=== PATIENT | female | born 1995 | race American Indian/Alaskan Native ===

== ENCOUNTER 2017-10-01 16:11 | Emergency (ER) | payer SELFPAY ==
[2017-10-01 16:46] VITALS: BP 109/71
[2017-10-01 18:18] LABS: Bilirubin,Urine NEG (Negative); Blood,Urine MOD (Negative); Color,Urine Colorless (Yellow); Protein,Urine <15 mg/dL mg/dL (Negative); RBC,Urine < 1.0 /HPF (0.0-6.0); Urobilinogen,Urine < 2.0 mg/dL (<2.0); WBC,Urine < 1.0 /HPF (0.0-6.0)
[2017-10-01 18:32] LABS: HCG Qualitative,Urine Negative (Negative)
--- NOTE | 2017-10-01 20:38 | Emergency Department Report ---
ED Female HPI - General Chief complaint: Urogenital-Female Stated complaint: LOWER ABD PAIN Time Seen by Provider: 10/01/17 20:01 Source: patient Mode of arrival: Ambulatory Limitations: No Limitations - History of Present Illness Initial comments: 22-year-old -Tai[place]ese female presented to the emergency room for pelvic back pain and vaginal discharge times one month. Patient reports that she has burning with urination chest pain 1 month. Patient does admit to smoking tobacco and marijuana daily. The patient admits to nausea subjective fever and urinary pressure no urgency urinary frequency. She is sexually active with males one partner unprotected in the last 6 months. Patient currently denies any chest pain at this moment. She reports that her pelvic pain is super pubic pain. Back pain is left lower. Patient reports her vaginal discharge feels like a yeast infection but has an odor. Patient's last menstrual period was . Patient currently does not have a primary care provider. She currently takes no medications on a daily basis no past medical history and has no known drug allergies. MD Complaint: vaginal discharge, dysuria, pelvic pain -: month(s) (1) Radiation: suprapubic Severity scale (0 -10): 10 Quality: sharp Consistency: constant Improves with: none Worsens with: movement Are you Now?: No Last Menstrual Period: 09/25/17 EDC: 07/02/18 Associated Symptoms: vaginal discharge, nausea/vomiting, dysuria. denies: fever /chills, loss of appetite, hematuria - Related Data Sexually active: Yes : 1 Para: 0 Previous Rx's Medication Instructions Recorded Last Taken Type metroNIDAZOLE [Flagyl] 500 mg PO Q8HR 7 Days #21 tab 10/01/17 Unknown Rx traMADol [Ultram 50 MG tab] 50 mg PO Q6HR PRN #12 tablet 10/01/17 Unknown Rx Allergies Allergy/AdvReac Type Severity Reaction Status Date / Time No Known Allergies Allergy Verified 01/30/13 21:36 ED Review of Systems ROS: Stated complaint: LOWER ABD PAIN Other details as noted in HPI ED Past Medical Hx - Past Medical History Previous Medical History?: No - Surgical History Past Surgical History?: No - Social History Smoking Status: Current Every Day Smoker Substance Use Type: Marijuana - Medications Home Medications: Home Medications Medication Instructions Recorded Confirmed Last Taken Type metroNIDAZOLE [Flagyl] 500 mg PO Q8HR 7 Days #21 tab 10/01/17 Unknown Rx traMADol [Ultram 50 MG tab] 50 mg PO Q6HR PRN #12 tablet 10/01/17 Unknown Rx ED Physical Exam - General Limitations: No Limitations General appearance: alert, in no apparent distress - Head Head exam: Present: atraumatic, normocephalic - Eye Eye exam: Present: EOMI - ENT ENT exam: Present: mucous membranes moist - Neck Neck exam: Present: full ROM - Respiratory Respiratory exam: Present: normal lung sounds bilaterally. Absent: respiratory distress - Cardiovascular Cardiovascular Exam: Present: regular rate, normal rhythm. Absent: systolic murmur, diastolic murmur, rubs, gallop - GI/Abdominal GI/Abdominal exam: Present: soft, tenderness (suprapubic). Absent: distended - External exam: Present: normal external exam Speculum exam: Present: cervical discharge Bi-manual exam: Present: adnexal tenderness, uterine tenderness - Extremities Exam Extremities exam: Present: normal inspection - Back Exam Back exam: Present: full ROM - Neurological Exam Neurological exam: Present: alert, oriented X3 - Psychiatric Psychiatric exam: Present: normal affect, normal mood - Skin Skin exam: Present: warm, dry, intact, normal color. Absent: rash ED Course Vital Signs 10/01/17 16:41 Temperature 98.6 F Pulse Rate 72 Respiratory 18 Rate Blood Pressure 109/71 O2 Sat by Pulse 100 Oximetry ED Medical Decision Making - Radiology Data Radiology results: report reviewed, image reviewed FINDINGS: UTERUS Size: 8.3 x 3.6 x 7.0 cm. Endometrial thickness: Mild degree echogenic contents are noted in the endometrial canal with minimal degree fluid. Endometrial thickness is 6 mm. Orientation: anteverted. Cervix: Normal. Fibroids/masses: None. RIGHT Ovary: 2.8 x 1.7 x 2.2 cm. Appearance: Normal. LEFT Ovary: 2.8 x 1.9 x 1.8 cm. Appearance: Normal. Pelvic fluid: None. Other: None. IMPRESSION: Mild degree echogenic contents in the endometrial canal most likely represent retained products of conception. Clinical correlation and follow-up studies are recommended.. Transcribed By: [facility] [place] Dictated By: LINSEY THOMAS Electronically Authenticated By: LINSEY THOMAS Signed Date/Time: 10/01/17 2340 DD/ 39 TD/TT: 10/01/172339 - Medical Decision Making Patient has been evaluated by this provider fast track. Gonorrhea and chlamydia and wet prep collected. Ultrasound of pelvic with transvaginal Estonian recently had a miscarriage/ . Toradol IV 15 mg given for pain management as well as Tylenol 1000 mg given for pain management. Ultrasound showed patient has retained product of conception. As well as wet prep shows polymorphonuclear cells and >20 clue cells. Spoke with Dr. Ino Lewis in regards of ultrasound results. He reports to have patient call tomorrow to have a D&C scheduled. As well as treat her for gonorrhea and bacterial vaginosis. Informed patient of my concerns and test results and imaging results. In plan for her to follow up with Dr. Ino Lewis Critical care attestation.: If time is entered above; I have spent that time in minutes in the direct care of this critically ill patient, excluding procedure time. ED Disposition Clinical Impression: Retained products of conception after miscarriage, Gonorrhea, BV (bacterial vaginosis) Disposition: TO HOME OR SELFCARE Is pt being admited?: No Does the pt Need Aspirin: No Condition: Stable Instructions: Bacterial Vaginosis (ED), Gonococcal Urethritis (ED), Safe Sex ( ED), Sexually Transmitted Diseases (ED) Additional Instructions: Please complete antibiotics as prescribed. Pain medication as needed. It's very importantly to follow up with Dr. Ino Lewis [facility] provider I given him a call tomorrow to schedule an appointment for D&C. Prescriptions: metroNIDAZOLE [Flagyl] 500 mg PO Q8HR 7 Days #21 tab traMADol [Ultram 50 MG tab] 50 mg PO Q6HR PRN #12 tablet PRN Reason: Pain Referrals: PRIMARY CAREMD [Primary Care Provider] - 3-5 Days INO LEWIS MD [Staff Physician] - 3-5 Days Forms: STI Treatment and Prevention
[2017-10-01] MEDS ORDERED: TORADOL IV ONE (20:52)
[2017-10-01] MEDS ORDERED: TYLENOL PO ONE (21:31)
[2017-10-01] MEDS ORDERED: TYLENOL ONE (21:32)
--- NOTE | 2017-10-01 23:40 | Ultrasound Report ---
FINAL REPORT PROCEDURE: US TRANSVAGINAL TECHNIQUE: Real-time transvaginal sonography in multiple planes of the pelvis was performed with image documentation. This examination was performed without Doppler. Vascular abnormalities, including ovarian torsion, will not be detectable without Doppler evaluation. CPT 52312 HISTORY: severe abdominal pain status post miscarriage COMPARISON: No prior studies are available for comparison. FINDINGS: UTERUS Size: 8.3 x 3.6 x 7.0 cm. Endometrial thickness: Mild degree echogenic contents are noted in the endometrial canal with minimal degree fluid. Endometrial thickness is 6 mm. Orientation: anteverted. Cervix: Normal. Fibroids/masses: None. RIGHT Ovary: 2.8 x 1.7 x 2.2 cm. Appearance: Normal. LEFT Ovary: 2.8 x 1.9 x 1.8 cm. Appearance: Normal. Pelvic fluid: None. Other: None. IMPRESSION: Mild degree echogenic contents in the endometrial canal most likely represent retained products of conception. Clinical correlation and follow-up studies are recommended..
--- NOTE | 2017-10-01 23:41 | Ultrasound Report ---
FINAL REPORT PROCEDURE: US PELVIC COMPLETE TECHNIQUE: Real-time transabdominal sonography in multiple planes of pelvis was performed with image documentation. This examination was performed without Doppler. Vascular abnormalities, including ovarian torsion, will not be detectable without Doppler evaluation. CPT 69867 HISTORY: severe abdominal pain status post miscarriage COMPARISON: No prior studies are available for comparison. FINDINGS: UTERUS Size: 8.3 x 3.6 x 7.0 cm. Endometrial thickness: Mild degree echogenic contents are noted in the endometrial canal with minimal degree fluid. Endometrial thickness is 6 mm. Orientation: anteverted. Cervix: Normal. Fibroids/masses: None. RIGHT Ovary: 2.8 x 1.7 x 2.2 cm. Appearance: Normal. LEFT Ovary: 2.8 x 1.9 x 1.8 cm. Appearance: Normal. Pelvic fluid: None. Other: None. IMPRESSION: Mild degree echogenic contents in the endometrial canal most likely represent retained products of conception. Clinical correlation and follow-up studies are recommended..
[2017-10-01] MEDS ORDERED: XYLOCAINE 1% MPF 5 mL INFILTRATI ONE (23:50)
[2017-10-01] MEDS ORDERED: ROCEPHIN IM ONE (23:50)
[2017-10-01] MEDS ORDERED: ZITHROMAX PO ONE (23:50)
== END 2017-10-02 00:55 | disposition home or self-care (01) ==
LOC: ED 16:11
DX: O03.4 Incomplete spontaneous abortion without complication (principal); O98.219 Gonorrhea complicating pregnancy, unspecified trimester; O23.599 Infection of other part of genital tract in pregnancy, unspecified trimester; O99.330 Smoking (tobacco) complicating pregnancy, unspecified trimester; F12.10 Cannabis abuse, uncomplicated
CPT/HCPCS: 76830; 76856; 81001; 81025; 87210; 87591; 93005; 93010; 96372; 96374; 99284; J0696; J1885

== ENCOUNTER 2017-10-14 22:00 | Emergency (ER) | payer SELFPAY ==
[2017-10-15 01:12] LABS: Basophils % (Auto) 0.4 % (0.0-1.8); Eosinophils % (Auto) 0.4 % (0.0-4.3); Hematocrit 36.2 % (30.3-42.9); Hemoglobin 11.9 gm/dl (10.1-14.3); Lymphocytes # (Auto) 2.7 K/mm3 (1.2-5.4); Lymphocytes % (Auto) 37.7 % (13.4-35.0); Mean Corpuscular HGB Conc 33 % (30-34); Mean Corpuscular Hemoglobin 29 pg (28-32); Mean Corpuscular Volume 88 fl (79-97); Monocytes # (Auto) 0.5 K/mm3 (0.0-0.8); Monocytes % (Auto) 6.7 % (0.0-7.3); Platelet Count 360 K/mm3 (140-440)
--- NOTE | 2017-10-15 01:22 | Emergency Department Report ---
ED Female HPI - General Chief complaint: Vaginal Bleeding Stated complaint: VAGINAL BLEEDING/DNC Time Seen by Provider: 10/15/17 01:13 Source: patient Mode of arrival: Ambulatory Limitations: No Limitations - History of Present Illness Initial comments: Patient is 22 years old female with recent miscarriage. Patient presented to the ER complaining of vaginal bleeding since she had the miscarriage one month ago. She stated that she saw Dr. Ino Lewis last Sunday and she was told that if the bleeding continued she would need a D&C. Patient denied any dizziness lightheadedness, chest pain or shortness of breath. MD Complaint: vaginal bleeding -: week(s) Severity scale (0 -10): 5 Quality: cramping - Related Data Previous Rx's Medication Instructions Recorded Last Taken Type metroNIDAZOLE [Flagyl] 500 mg PO Q8HR 7 Days #21 tab 10/01/17 Unknown Rx traMADol [Ultram 50 MG tab] 50 mg PO Q6HR PRN #12 tablet 10/01/17 Unknown Rx Allergies Allergy/AdvReac Type Severity Reaction Status Date / Time No Known Allergies Allergy Verified 01/30/13 21:36 ED Review of Systems ROS: Stated complaint: VAGINAL BLEEDING/DNC Other details as noted in HPI Comment: All other systems reviewed and negative Constitutional: denies: chills, fever Respiratory: denies: cough, orthopnea, shortness of breath, SOB with exertion, wheezing Gastrointestinal: abdominal pain. denies: nausea, vomiting, diarrhea, hematemesis, melena, hematochezia Neurological: denies: headache, weakness ED Past Medical Hx - Past Medical History Previous Medical History?: No - Surgical History Past Surgical History?: No - Social History Smoking Status: Never Smoker Substance Use Type: Alcohol, Marijuana - Medications Home Medications: Home Medications Medication Instructions Recorded Confirmed Last Taken Type metroNIDAZOLE [Flagyl] 500 mg PO Q8HR 7 Days #21 tab 10/01/17 Unknown Rx traMADol [Ultram 50 MG tab] 50 mg PO Q6HR PRN #12 tablet 10/01/17 Unknown Rx ED Physical Exam - General Limitations: No Limitations General appearance: alert, in no apparent distress - Head Head exam: Present: atraumatic, normocephalic, normal inspection - Eye Eye exam: Present: normal appearance - ENT ENT exam: Present: normal exam, normal orophraynx, mucous membranes moist - Neck Neck exam: Present: normal inspection, full ROM. Absent: tenderness, meningismus, lymphadenopathy, thyromegaly - Respiratory Respiratory exam: Present: normal lung sounds bilaterally - Cardiovascular Cardiovascular Exam: Present: regular rate, normal rhythm, normal heart sounds - GI/Abdominal GI/Abdominal exam: Present: soft, normal bowel sounds. Absent: distended, tenderness, guarding, rebound, rigid - Extremities Exam Extremities exam: Present: normal inspection, full ROM, normal capillary refill. Absent: calf tenderness - Back Exam Back exam: Present: normal inspection, full ROM - Neurological Exam Neurological exam: Present: alert, oriented X3, CN II-XII intact, normal gait - Skin Skin exam: Present: warm, intact, normal color ED Course Vital Signs 10/14/17 10/15/17 10/15/17 23:57 00:48 02:00 Temperature 98.3 F 98.1 F Pulse Rate 77 60 68 Respiratory 16 18 18 Rate Blood Pressure 115/58 Blood Pressure 109/60 107/68 [Right] O2 Sat by Pulse 100 99 99 Oximetry ED Medical Decision Making - Lab Data Result diagrams: 10/15/17 00:14 - Medical Decision Making I discussed the patient with Dr. Ino Lewis, Dr. Lewis stated that patient can be discharged home and to follow-up with him in his office today. Critical care attestation.: If time is entered above; I have spent that time in minutes in the direct care of this critically ill patient, excluding procedure time. ED Disposition Clinical Impression: Retained products of conception after miscarriage Disposition: DC-01 TO HOME OR SELFCARE Is pt being admited?: No Condition: Stable Instructions: Bleeding (ED) Referrals: INO LEWIS MD [Staff Physician] - 24 Hours
[2017-10-15 02:23] LABS: Amorphous Crystals,Urine 1+; Bilirubin,Urine NEG (Negative); Blood,Urine NEG (Negative); Color,Urine Yellow (Yellow); Urobilinogen,Urine < 2.0 mg/dL (<2.0)
[2017-10-15 02:25] LABS: RBC,Urine < 1.0 /HPF (0.0-6.0); WBC,Urine < 1.0 /HPF (0.0-6.0)
[2017-10-15 02:50] VITALS: BP 107/68
== END 2017-10-15 02:45 | disposition home or self-care (01) ==
LOC: ED 22:00
DX: O03.4 Incomplete spontaneous abortion without complication (principal); F12.10 Cannabis abuse, uncomplicated
CPT/HCPCS: 36415; 81001; 84702; 85025; 86850; 86900; 86901; 99283

== ENCOUNTER 2017-10-16 09:30 | Day surgery (SDC) | payer OTHER ==
[~2017-10-16 09:30] MED LIST: DEMEROL IV PRN; LACTATED RINGERS 1,000 ML IV SCH; TORADOL IV PRN; VERSED IV NR; ZOFRAN IV PRN
--- NOTE | 2017-10-16 12:10 | Anesthesia Consultation ---
Anesthesia Consult and Med Hx Date of service: 10/16/17 - Airway Anesthetic Teeth Evaluation: Good ROM Head & Neck: Adequate Mental/Hyoid Distance: Adequate Mallampati Class: Class II Intubation Access Assessment: Good - Pulmonary Exam CTA: Yes - Cardiac Exam Cardiac Exam: RRR - Pre-Operative Health Status ASA Pre-Surgery Classification: ASA2 Proposed Anesthetic Plan: General - Pulmonary Hx Smoking: Yes
--- NOTE | 2017-10-16 12:11 | Anesthesia Day of Surgery ---
Anesthesia Day of Surgery - Day of Surgery Patient Examined: Yes Patient H&P Reviewed: Yes Patient is NPO: Yes
[2017-10-16] MEDS ORDERED: DILAUDID IV SCH (12:16)
[2017-10-16] MEDS ORDERED: XYLOCAINE MPF 2% ONE (12:22)
[2017-10-16] MEDS ORDERED: SUBLIMAZE ONE (12:22)
[2017-10-16] MEDS ORDERED: DIPRIVAN 10 MG/ML IV ONE (12:22)
--- NOTE | 2017-10-16 12:47 | Short Stay Summary ---
Short Stay Documentation Date of service: 10/16/17 Narrative H&P: Pt is a 22yo BF LMP 09/25/17 presents for surgical evaluation and treatment of retained products of conception. - History Principal diagnosis: Retained products of conception H&P: obtained from office Past Medical History: No medical history Past Surgical History: No surgical history Social history: no significant social history, single, smoking - Allergies and Medications Current Medications: Allergies No Known Allergies Allergy (Verified 01/30/13 21:36) Home Medications Medication Instructions Recorded Confirmed Last Taken Type metroNIDAZOLE [Flagyl] 500 mg PO Q8HR 7 Days #21 tab 10/01/17 Unknown Rx traMADol [Ultram 50 MG tab] 50 mg PO Q6HR PRN #12 tablet 10/01/17 Unknown Rx Active Medications Hydromorphone HCl (Dilaudid) 0.5 mg IV Q10MIN PRN PRN Reason: Pain , Severe (7-10) Stop: 10/16/17 16:00 Hydromorphone HCl (Dilaudid) 0.5 mg IV ONCE SHARATH Stop: 10/16/17 23:59 Lactated Ringer's (Lactated Ringers) 1,000 mls @ 100 mls/hr IV DIRECT SHARATH Cefazolin Sodium (Ancef/Sterile Water 2 Gm/20 Ml) 2 gm in 20 mls @ 80 mls/hr IV PREOP NR; Protocol Ketorolac Tromethamine (Toradol) 30 mg IV ONCE PRN PRN Reason: Pain, Moderate (4-6) Stop: 10/16/17 16:00 Meperidine HCl (Demerol) 25 mg IV ONCE PRN PRN Reason: Shivering Midazolam HCl (Versed) 2 mg IV PREOP NR Stop: 10/16/17 23:59 Ondansetron HCl (Zofran) 4 mg IV ONCE PRN PRN Reason: Nausea And Vomiting Stop: 10/16/17 16:00 - Physical exam General appearance: no acute distress Integumentary: no rash HEENT: Atraumatic Lungs: Clear to auscultation Breasts: deferred Heart: Regular rate Gastrointestinal: normal Female Genitourinary: deferred Rectal Exam: deferred Extremities: no ischemia, No edema Neurological: Normal gait, Normal speech - Brief post op/procedure progress note Date of procedure: 09/11/18 Pre-op diagnosis: Retained products of conception Post-op diagnosis: same Procedure: Dilatation and curettage Anesthesia: MAC Findings: An 8-10 week size uterus with scant amounts of products of conception Surgeon: LISA OSORIO Estimated blood loss: minimal Pathology: list (products of conception) Specimen disposition: to lab Condition: stable - Hospital course Hospital course: Unremarkable. - Disposition Condition at discharge: Good Disposition: DC- TO HOME OR SELFCARE - Discharge Diagnoses (1) Retained products of conception after miscarriage Status: Resolved Short Stay Discharge Plan Activity: no restrictions Diet: regular Follow up with: PRIMARY CARE,MD [Primary Care Provider] - 7 Days LISA OSORIO MD [Staff Physician] - 14 Days Prescriptions: Doxycycline [Vibramycin CAP] 100 mg PO Q12HR #14 capsule Ibuprofen [Motrin] 800 mg PO Q8HR PRN #30 tablet PRN Reason: Pain, Moderate (4-6) Methylergonovine [Methergine] 0.2 mg PO Q8HR #6 tablet
[2017-10-16] MEDS ORDERED: ANCEF/STERILE WATER 2 GM/20 ML 2 GM/20 ML SYRINGE IV NR (13:00)
[2017-10-16] MEDS ORDERED: QUELICIN ONE (13:35)
[2017-10-16] MEDS ORDERED: NACL 0.9% IR ONE (13:40)
--- NOTE | 2017-10-16 13:42 | Operative Report ---
Operative Report Operative Report: PREOPERATIVE DIAGNOSIS: Retained products of conception POSTOPERATIVE DIAGNOSIS: Same OPERATIVE PROCEDURE: Dilatation and curettage. SURGEON: Ino Lewis MD ANESTHESIA: Gen. mask ANESTHESIOLOGIST: Dr. Lang ESTIMATED BLOOD LOSS: 30 mL's FINDINGS: An 8-10 week size uterus with scant amounts of products of conception COMPLICATIONS: None COUNTS: Correct x3. PROCEDURE: After the patient was correctly identified, and after general anesthesia was administered, the patient was prepped and draped in the usual sterile fashion and placed in dorsal lithotomy position. First, the bladder was emptied using a straight catheter. Next, a speculum was placed in the vaginal vault and the anterior lip of the cervix was grasped using a single- tooth tenaculum. The uterus was sounded to 9 cm. The cervical os was sequentially dilated, and a 9 mm vaccurette was used to suction blood and products of conception from the uterine cavity. After all the products of conception were removed, the procedure was considered complete. All instruments were removed from the vagina. The patient tolerated the procedure well and was transferred to the recovery room in stable condition.
[2017-10-16] MEDS: DILAUDID IV PRN ×2 (14:20→15:22)
[2017-10-16] MEDS ORDERED: MOTRIN PO PRN (15:04)
[2017-10-16 16:30] VITALS: BP 133/76
== END 2017-10-16 16:33 | disposition home or self-care (01) ==
LOC: OR 09:30
PROVIDERS: ATTEND Obstetrics & Gynecology
DX: O03.4 Incomplete spontaneous abortion without complication (principal); Z3A.01 Less than 8 weeks gestation of pregnancy; Z79.899 Other long term (current) drug therapy; Z87.891 Personal history of nicotine dependence
CPT/HCPCS: 59812; 88305; J0330; J0690; J1170; J1885; J2250; J2405; J2704; J3010; J7120

== ENCOUNTER 2018-11-20 15:16 | Emergency (ER) | payer MEDICAID ==
[2018-11-20 17:24] LABS: Bilirubin,Urine NEG (Negative); Blood,Urine NEG (Negative); Color,Urine Straw (Yellow); Mucus,Urine FEW /HPF; Protein,Urine <15 mg/dL mg/dL (Negative); Urobilinogen,Urine < 2.0 mg/dL (<2.0)
[2018-11-20 17:32] LABS: HCG Qualitative,Urine Negative (Negative)
[2018-11-20 17:33] LABS: Amphetamine Screen,Urine PRESUMPTIVE NEGATIVE; Benzodiazepines Screen,Urine PRESUMPTIVE NEGATIVE; Cannabinoid Screen,Urine PRESUMPTIVE NEGATIVE; Cocaine Screen,Urine PRESUMPTIVE NEGATIVE; Methadone Screen,Urine PRESUMPTIVE NEGATIVE; Opiate Screen,Urine PRESUMPTIVE NEGATIVE
--- NOTE | 2018-11-20 17:55 | Emergency Department Report ---
HPI - General Chief Complaint: Abdominal Pain Time Seen by Provider: 11/20/18 16:01 - HPI HPI: 23-year-old -Bangladeshi female presents to the emergency department with a complaint of some pelvic pain that has been going on intermittently for the past 2-3 months, since the patient had an in September of this year. She denies any vaginal bleeding or vaginal discharge but does say that she has an odor coming from the vagina. She denies any fever, nausea, vomiting. Her pelvic pain is about 4 out of 10 in intensity. She has not taken anything for her symptoms prior to presentation. She does not have a primary care physician or [facility]. ED Past Medical Hx - Past Medical History Previous Medical History?: No Additional medical history: D & C October 2017 - Surgical History Past Surgical History?: Yes Additional Surgical History: D & C October 2017 - Social History Smoking Status: Never Smoker Substance Use Type: Alcohol - Medications Home Medications: Home Medications Medication Instructions Recorded Confirmed Last Taken Type traMADol [Ultram 50 MG tab] 50 mg PO Q6HR PRN #12 tablet 10/01/17 10/16/17 10/14/17 Rx DOXYCYCLINE Hyclate [Vibramycin 100 mg PO Q12HR #14 capsule 10/16/17 Unknown Rx CAP] Ibuprofen [Motrin] 800 mg PO Q8HR PRN #30 tablet 10/16/17 Unknown Rx Methylergonovine [Methergine] 0.2 mg PO Q8HR #6 tablet 10/16/17 Unknown Rx Ibuprofen [Motrin] 600 mg PO Q8H PRN #30 tablet 01/13/18 Unknown Rx Naproxen [Naprosyn] 500 mg PO BID #20 tablet 11/20/18 Unknown Rx metroNIDAZOLE [Flagyl] 500 mg PO Q12HR 7 Days #14 tab 11/20/18 Unknown Rx ED Review of Systems ROS: Stated complaint: LOWER ABD PAIN Other details as noted in HPI Comment: All other systems reviewed and negative Constitutional: denies: chills, fever Gastrointestinal: denies: nausea, vomiting Genitourinary: other (pelvic pain). denies: dysuria, discharge Skin: denies: rash, lesions Physical Exam - Physical Exam Vital Signs: Vital Signs 11/20/18 15:22 Temperature 98.0 F Pulse Rate 66 Respiratory 18 Rate Blood Pressure 116/72 O2 Sat by Pulse 100 Oximetry Physical Exam: GENERAL: The patient is well-developed well-nourished. HENT: Normocephalic. Atraumatic. Patient has moist mucous membranes. EYES: Extraocular motions are intact. NECK: Supple. Trachea is midline. CHEST/LUNGS: Clear to auscultation. There is no respiratory distress noted. HEART/CARDIOVASCULAR: Regular. There is no tachycardia. There is no murmur. ABDOMEN: Abdomen is soft, nontender. Patient has normal bowel sounds. There is no abdominal distention. SKIN: Skin is warm and dry. NEURO: The patient is awake, alert, and oriented. The patient is cooperative. The patient has no focal neurologic deficits. Normal speech. MUSCULOSKELETAL: There is no tenderness or deformity. There is no evidence of acute injury. PELVIC: No labial, vaginal or cervical lesions seen. Cervical os is closed. Mild thin white discharge seen in the vagina. ED Course Vital Signs 11/20/18 15:22 Temperature 98.0 F Pulse Rate 66 Respiratory 18 Rate Blood Pressure 116/72 O2 Sat by Pulse 100 Oximetry - Reevaluation(s) Reevaluation #1: 11/20/18 18:02 Pelvic exam done with nurse Askew at bedside as a tub chucker and for assistance. ED Medical Decision Making - Radiology Data Radiology results: report reviewed Transabdominal and endovaginal pelvic ultrasound INDICATION: Intermittent pelvic pain x3 months FINDINGS: Uterus measures 7.7 x 4.2 x 5.4 cm. Endometrial stripe is normal at 5 IMPRESSION: Negative pelvic ultrasound. Mm. Right ovary measures 2.5 x 2 x 2.6 cm and appears normal with no masses or torsion. The left ovary measures 2.7 x 2.1 x 2.5 cm and appears normal as well. There is good arterial flow to both ovaries with no evidence of torsion. No free fluid is seen. No abnormality demonstrated. Signer Name: Renaldo Arango MD Signed: 11/20/2018 8:10 PM Workstation Name: [id number] - Medical Decision Making Patient presents with some pelvic pain and later complained of some odor from the vagina. Pelvic examination was done with a nurse at bedside as tub chucker and senior it assistant. Wet prep positive for BV. The rest of the labs are unremarkable. Transvaginal ultrasound completed. Negative for . Vital signs stable. Discharged to follow up with [facility]. - Differential Diagnosis ovarian torsion, ovarian cyst, , fibroid, UTI Critical Care Time: No Critical care attestation.: If time is entered above; I have spent that time in minutes in the direct care of this critically ill patient, excluding procedure time. ED Disposition Clinical Impression: Pelvic pain, Bacterial vaginosis Disposition: TO HOME OR SELFCARE Is pt being admited?: No Condition: Stable Instructions: Bacterial Vaginosis (ED) Prescriptions: metroNIDAZOLE [Flagyl] 500 mg PO Q12HR 7 Days #14 tab Naproxen [Naprosyn] 500 mg PO BID #20 tablet Referrals: [facility] [Provider Group] - 2-3 Days [facility] [Provider Group] - 2-3 Days [facility] [Provider Group] - 2-3 Days Forms: STI Treatment and Prevention, Work/School Release Form(ED)
[2018-11-20] MEDS ORDERED: ZITHROMAX PO ONE (19:40)
[2018-11-20] MEDS ORDERED: ROCEPHIN IM ONE (19:40)
[2018-11-20] MEDS ORDERED: XYLOCAINE 1% MPF 5 mL INFILTRATI ONE (19:40)
--- NOTE | 2018-11-20 20:15 | Ultrasound Report ---
Transabdominal and endovaginal pelvic ultrasound INDICATION: Intermittent pelvic pain x3 months FINDINGS: Uterus measures 7.7 x 4.2 x 5.4 cm. Endometrial stripe is normal at 5 IMPRESSION: Negative pelvic ultrasound. Mm. Right ovary measures 2.5 x 2 x 2.6 cm and appears normal with no masses or torsion. The left ovary measures 2.7 x 2.1 x 2.5 cm and appears normal as well. The re is good arterial flow to both ovaries with no evidence of torsion. No free fluid is seen. No abnor mality demonstrated. Signer Name: Renaldo Arango MD Signed: 11/20/2018 8:10 PM Workstation Name: [id number]
[2018-11-20 20:48] VITALS: BP 134/84
== END 2018-11-20 20:48 | disposition home or self-care (01) ==
LOC: ED 15:16
DX: N76.0 Acute vaginitis (principal); B96.89 Other specified bacterial agents as the cause of diseases classified elsewhere; Z79.899 Other long term (current) drug therapy
CPT/HCPCS: 76830; 80307; 81001; 81025; 87210; 87591; 93975; 96372; 99284; J0696

== ENCOUNTER 2018-12-19 12:24 | Emergency (ER) | payer MEDICAID ==
[2018-12-19 12:34] VITALS: BP 117/64
--- NOTE | 2018-12-19 12:48 | Emergency Department Report ---
Blank Doc - Documentation Documentation: 23-year-old female that presents with pelvic pain and vaginal discharge. This initial assessment/diagnostic orders/clinical plan/treatment(s) is/are subject to change based on patient's health status, clinical progression and re- assessment by fellow clinical providers in the ED. Further treatment and workup at subsequent clinical providers discretion. Patient/guardians urged not to elope from the ED as their condition may be serious if not clinically assessed and managed. Initial orders include: 1- Patient sent to [facility] for further evaluation and treatment 2- UA 3- pelvic exam to be done
[2018-12-19 14:12] LABS: Bilirubin,Urine NEG (Negative); Blood,Urine MOD (Negative); Color,Urine Yellow (Yellow); Protein,Urine <15 mg/dL mg/dL (Negative); Urobilinogen,Urine < 2.0 mg/dL (<2.0)
[2018-12-19 14:23] LABS: HCG Qualitative,Urine Negative (Negative)
--- NOTE | 2018-12-19 16:10 | Emergency Department Report ---
ED Female HPI - General Chief complaint: Abdominal Pain Stated complaint: ABD PAIN Time Seen by Provider: 12/19/18 12:47 Source: patient Mode of arrival: Ambulatory Limitations: No Limitations - History of Present Illness Initial comments: This is a 23-year-old female with no problems medical history presents to ED complaining of a vaginal odor for the past week. Patient states that she had the in September and after that had a bacterial infection where she was evaluated and treated with Flagyl. Patient states that symptoms did not resolve with the Flagyl treatment. He denies vaginal discharge, irregular bleeding, dysuria, fever, nausea vomiting - Related Data Previous Rx's Medication Instructions Recorded Last Taken Type traMADoL [Ultram 50 MG tab] 50 mg PO Q6HR PRN #12 tablet 10/01/17 10/14/17 Rx DOXYCYCLINE Hyclate [Vibramycin 100 mg PO Q12HR #14 capsule 10/16/17 Unknown Rx CAP] Ibuprofen [Motrin] 800 mg PO Q8HR PRN #30 tablet 10/16/17 Unknown Rx Methylergonovine [Methergine] 0.2 mg PO Q8HR #6 tablet 10/16/17 Unknown Rx Ibuprofen [Motrin] 600 mg PO Q8H PRN #30 tablet 01/13/18 Unknown Rx Naproxen [Naprosyn] 500 mg PO BID #20 tablet 11/20/18 Unknown Rx metroNIDAZOLE [Flagyl] 500 mg PO Q12HR 7 Days #14 tab 11/20/18 Unknown Rx Clindamycin [Clindamycin CAP] 300 mg PO Q8H #21 cap 12/19/18 Unknown Rx Fluconazole [Diflucan TAB] 150 mg PO ONCE #1 tablet 12/19/18 Unknown Rx Allergies Allergy/AdvReac Type Severity Reaction Status Date / Time No Known Allergies Allergy Verified 01/30/13 21:36 ED Review of Systems ROS: Stated complaint: ABD PAIN Other details as noted in HPI Comment: All other systems reviewed and negative ED Past Medical Hx - Past Medical History Additional medical history: D & C October 2017 - Surgical History Additional Surgical History: D & C October 2017 - Social History Smoking Status: Never Smoker Substance Use Type: None - Medications Home Medications: Home Medications Medication Instructions Recorded Confirmed Last Taken Type traMADoL [Ultram 50 MG tab] 50 mg PO Q6HR PRN #12 tablet 10/01/17 10/16/17 10/14/17 Rx DOXYCYCLINE Hyclate [Vibramycin 100 mg PO Q12HR #14 capsule 10/16/17 Unknown Rx CAP] Ibuprofen [Motrin] 800 mg PO Q8HR PRN #30 tablet 10/16/17 Unknown Rx Methylergonovine [Methergine] 0.2 mg PO Q8HR #6 tablet 10/16/17 Unknown Rx Ibuprofen [Motrin] 600 mg PO Q8H PRN #30 tablet 01/13/18 Unknown Rx Naproxen [Naprosyn] 500 mg PO BID #20 tablet 11/20/18 Unknown Rx metroNIDAZOLE [Flagyl] 500 mg PO Q12HR 7 Days #14 tab 11/20/18 Unknown Rx Clindamycin [Clindamycin CAP] 300 mg PO Q8H #21 cap 12/19/18 Unknown Rx Fluconazole [Diflucan TAB] 150 mg PO ONCE #1 tablet 12/19/18 Unknown Rx ED Physical Exam - General Limitations: No Limitations General appearance: alert, in no apparent distress - Head Head exam: Present: atraumatic, normocephalic - Eye Eye exam: Present: normal appearance - ENT ENT exam: Present: mucous membranes moist - Neck Neck exam: Present: normal inspection - Respiratory Respiratory exam: Present: normal lung sounds bilaterally. Absent: respiratory distress - Cardiovascular Cardiovascular Exam: Present: regular rate, normal rhythm. Absent: systolic murmur, diastolic murmur, rubs, gallop - GI/Abdominal GI/Abdominal exam: Present: soft, normal bowel sounds - Extremities Exam Extremities exam: Present: normal inspection - Back Exam Back exam: Present: normal inspection - Neurological Exam Neurological exam: Present: alert, oriented X3 - Psychiatric Psychiatric exam: Present: normal affect, normal mood - Skin Skin exam: Present: warm, dry, intact, normal color. Absent: rash ED Course Vital Signs 12/19/18 12:33 Temperature 98.4 F Pulse Rate 67 Respiratory 16 Rate Blood Pressure 117/64 O2 Sat by Pulse 99 Oximetry ED Medical Decision Making - Medical Decision Making 23-year-old female presents with vaginitis. Discussed the patient to follow-up with [facility] [place] [facility] for STD screening she is concerned. Patient was given clindamycin as treatment for recurrent BV. Patient will be following up with subsegmental medical's for STD screening. Patient was in no acute distress. Vital signs are normal patient understands instructions and states she will follow up. Critical care attestation.: If time is entered above; I have spent that time in minutes in the direct care of this critically ill patient, excluding procedure time. ED Disposition Clinical Impression: Vaginitis Disposition: - TO HOME OR SELFCARE Is pt being admited?: No Does the pt Need Aspirin: No Condition: Stable Instructions: Abdominal Pain (ED), Vaginitis (ED), Bacterial Vaginosis (ED) Additional Instructions: Make sure to follow up with the primary care physician as discussed. Take all your medications as you've been prescribed. If you have any worsening symptoms or develop new symptoms please return to ED immediately. Prescriptions: Clindamycin [Clindamycin CAP] 300 mg PO Q8H #21 cap Fluconazole [Diflucan TAB] 150 mg PO ONCE #1 tablet Referrals: [facility] [Outside] - 3-5 Days [facility] [Outside] - 3-5 Days Forms: Accompanied Note, Work/School Release Form(ED) Time of Disposition: 16:10
== END 2018-12-19 16:40 | disposition home or self-care (01) ==
LOC: ED 12:24
DX: N76.0 Acute vaginitis (principal); Z98.890 Other specified postprocedural states; Z79.1 Long term (current) use of non-steroidal anti-inflammatories (NSAID); Z79.899 Other long term (current) drug therapy
CPT/HCPCS: 81001; 81025

== ENCOUNTER 2019-01-24 10:55 | Emergency (ER) | payer MEDICAID ==
--- NOTE | 2019-01-24 11:28 | Event Note ---
ED Screening Note Date of service: 01/24/19 Time: 11:27 ED Screening Note: This is a 23 y.o. F. that presents to the ER with pelvic cramping and vaginal discharge for 1-2 weeks. LMP 01/08/19 A2 Current smoker This initial assessment/diagnostic orders/clinical plan/treatment(s) is/are s ubject to change based on patients health status, clinical progression and re- assessment by fellow clinical providers in the ED. Further treatment and workup at subsequent clinical providers discretion. Patient/guardian urged not to elope from the ED as their condition may be serious if not clinically assessed and managed. Initial orders include: Labs
[2019-01-24 12:18] LABS: HCG Qualitative,Urine Negative (Negative)
[2019-01-24 12:19] LABS: Bacteria,Urine 1+ /HPF (Negative); Bilirubin,Urine NEG (Negative); Blood,Urine NEG (Negative); Color,Urine Yellow (Yellow); Mucus,Urine FEW /HPF; Protein,Urine <15 mg/dL mg/dL (Negative); Urobilinogen,Urine < 2.0 mg/dL (<2.0)
--- NOTE | 2019-01-24 12:41 | Emergency Department Report ---
ED General Adult HPI - General Chief complaint: Abdominal Pain Stated complaint: ABD/RT SIDE/BACK PAIN Time Seen by Provider: 01/24/19 11:27 Source: patient Mode of arrival: Ambulatory Limitations: No Limitations - History of Present Illness Initial comments: 23-year-old -French female patient complains of lower abdominal pain and vaginal discharge 2 weeks. Patient states symptoms have been recurrent over the past few months and has been seen here in November and December of this year. She was initially treated for BV with Flagyl, and then treated for resistant BV with clindamycin. Patient has not followed up with IMMUNOHEMATOLOGIST as recommended and has not had any STI testing. Patient rates her pain as a 9/10 in severity. She admits to dysuria, but denies any vaginal bleeding, hematuria. - Related Data Previous Rx's Medication Instructions Recorded Last Taken Type traMADoL [Ultram 50 MG tab] 50 mg PO Q6HR PRN #12 tablet 10/01/17 10/14/17 Rx DOXYCYCLINE Hyclate [Vibramycin 100 mg PO Q12HR #14 capsule 10/16/17 Unknown Rx CAP] Ibuprofen [Motrin] 800 mg PO Q8HR PRN #30 tablet 10/16/17 Unknown Rx Methylergonovine [Methergine] 0.2 mg PO Q8HR #6 tablet 10/16/17 Unknown Rx Ibuprofen [Motrin] 600 mg PO Q8H PRN #30 tablet 01/13/18 Unknown Rx Naproxen [Naprosyn] 500 mg PO BID #20 tablet 11/20/18 Unknown Rx metroNIDAZOLE [Flagyl] 500 mg PO Q12HR 7 Days #14 tab 11/20/18 Unknown Rx Clindamycin [Clindamycin CAP] 300 mg PO Q8H #21 cap 12/19/18 Unknown Rx Fluconazole [Diflucan TAB] 150 mg PO ONCE #1 tablet 12/19/18 Unknown Rx Doxycycline Monohydrate 100 mg PO BID 14 Days #28 tablet 01/24/19 Unknown Rx Fluconazole [Diflucan TAB] 150 mg PO ONCE 1 Days #2 tablet 01/24/19 Unknown Rx metroNIDAZOLE [Flagyl TAB] 500 mg PO Q12HR 6 Days #12 tab 01/24/19 Unknown Rx Allergies Allergy/AdvReac Type Severity Reaction Status Date / Time No Known Allergies Allergy Verified 01/24/19 10:56 ED Review of Systems ROS: Stated complaint: ABD/RT SIDE/BACK PAIN Other details as noted in HPI ED Past Medical Hx - Past Medical History Additional medical history: D & C October 2017 - Surgical History Additional Surgical History: D & C October 2017 - Social History Smoking Status: Current Every Day Smoker - Medications Home Medications: Home Medications Medication Instructions Recorded Confirmed Last Taken Type traMADoL [Ultram 50 MG tab] 50 mg PO Q6HR PRN #12 tablet 10/01/17 10/16/17 10/14/17 Rx DOXYCYCLINE Hyclate [Vibramycin 100 mg PO Q12HR #14 capsule 10/16/17 Unknown Rx CAP] Ibuprofen [Motrin] 800 mg PO Q8HR PRN #30 tablet 10/16/17 Unknown Rx Methylergonovine [Methergine] 0.2 mg PO Q8HR #6 tablet 10/16/17 Unknown Rx Ibuprofen [Motrin] 600 mg PO Q8H PRN #30 tablet 01/13/18 Unknown Rx Naproxen [Naprosyn] 500 mg PO BID #20 tablet 11/20/18 Unknown Rx metroNIDAZOLE [Flagyl] 500 mg PO Q12HR 7 Days #14 tab 11/20/18 Unknown Rx Clindamycin [Clindamycin CAP] 300 mg PO Q8H #21 cap 12/19/18 Unknown Rx Fluconazole [Diflucan TAB] 150 mg PO ONCE #1 tablet 12/19/18 Unknown Rx Doxycycline Monohydrate 100 mg PO BID 14 Days #28 tablet 01/24/19 Unknown Rx Fluconazole [Diflucan TAB] 150 mg PO ONCE 1 Days #2 tablet 01/24/19 Unknown Rx metroNIDAZOLE [Flagyl TAB] 500 mg PO Q12HR 6 Days #12 tab 01/24/19 Unknown Rx ED Physical Exam - General Limitations: No Limitations General appearance: alert, in no apparent distress - Head Head exam: Present: atraumatic, normocephalic - Eye Eye exam: Present: normal appearance - ENT ENT exam: Present: mucous membranes moist - Respiratory Respiratory exam: Present: normal lung sounds bilaterally. Absent: respiratory distress - Cardiovascular Cardiovascular Exam: Present: regular rate, normal rhythm. Absent: systolic murmur, diastolic murmur, rubs, gallop - GI/Abdominal GI/Abdominal exam: Present: soft, tenderness (mild suprapubic), normal bowel sounds. Absent: distended, guarding, rebound, rigid - Rectal Rectal exam: Present: deferred - External exam: Present: normal external exam Speculum exam: Present: erythema, vaginal discharge (profuse without odor), cervical discharge. Absent: vaginal bleeding, foreign body, laceration Bi-manual exam: Present: cervical motion tendernes (with strawberry cervix) - Extremities Exam Extremities exam: Present: normal inspection - Neurological Exam Neurological exam: Present: alert, oriented X3 - Psychiatric Psychiatric exam: Present: normal affect, normal mood - Skin Skin exam: Present: warm, dry, intact, normal color. Absent: rash ED Course Vital Signs 01/24/19 01/24/19 11:27 15:32 Temperature 98.4 F 98.7 F Pulse Rate 111 H 70 Respiratory 16 18 Rate Blood Pressure 102/63 Blood Pressure 100/51 [Left] O2 Sat by Pulse 100 100 Oximetry ED Medical Decision Making - Lab Data Lab Results 01/24/19 Range/Units 11:48 Urine Color Yellow (Yellow) Urine Turbidity Slightly-cloudy (Clear) Urine pH 5.0 (5.0-7.0) Ur Specific [place] 1.020 (1.003-1.030) Urine Protein <15 mg/dl (Negative) mg/dL Urine Glucose (UA) Neg (Negative) mg/dL Urine Ketones Tr (Negative) mg/dL Urine Blood Neg (Negative) Urine Nitrite Neg (Negative) Ur Reducing Substances Not Reportable Urine Bilirubin Neg (Negative) Urine Ictotest Not Reportable Urine Urobilinogen < 2.0 (<2.0) mg/dL Ur Leukocyte Esterase Lg (Negative) Urine WBC (Auto) 17.0 H (0.0-6.0) /HPF Urine RBC (Auto) 4.0 (0.0-6.0) /HPF U Epithel Cells (Auto) 19.0 H (0-13.0) /HPF Urine Bacteria (Auto) 1+ (Negative) /HPF Urine Mucus Few /HPF Urine HCG, Qual Negative (Negative) Vital Signs 01/24/19 01/24/19 11:27 15:32 Temperature 98.4 F 98.7 F Pulse Rate 111 H 70 Respiratory 16 18 Rate Blood Pressure 102/63 Blood Pressure 100/51 [Left] O2 Sat by Pulse 100 100 Oximetry - Radiology Data Radiology results: report reviewed - Medical Decision Making 23-year-old -French female patient complains of lower abdominal pain and vaginal discharge 2 weeks. Patient states symptoms have been recurrent over the past few months and has been seen here in November and December of this year. She was initially treated for BV with Flagyl, and then treated for resistant BV with clindamycin. Positive cervical motion tenderness noted on exam. Wet prep is positive for Trichomonas, BV, in [place]. Vitals are WNL. Empiric treatment given for gonorrhea and chlamydia and patient treated for Trichomonas with Flagyl. Patient stable for discharge home and outpatient treatment for PID. Discussed need for patient to inform partner to get tested and treated. Recommend follow- up with IMMUNOHEMATOLOGIST within 5-7 days. Discussed strict return precautions in detail with patient who verbalizes understanding. Critical care attestation.: If time is entered above; I have spent that time in minutes in the direct care of this critically ill patient, excluding procedure time. ED Disposition Clinical Impression: PID (acute pelvic inflammatory disease), Trichomonal cervicitis, Bacterial vaginosis, Vaginal yeast infection Disposition: TO HOME OR SELFCARE Is pt being admited?: No Condition: Stable Instructions: Pelvic Inflammatory Disease (ED), Bacterial Vaginosis (ED), Trichomoniasis (ED), Vulvovaginal Candidiasis (ED) Prescriptions: Fluconazole [Diflucan TAB] 150 mg PO ONCE 1 Days #2 tablet Doxycycline Monohydrate 100 mg PO BID 14 Days #28 tablet metroNIDAZOLE [Flagyl TAB] 500 mg PO Q12HR 6 Days #12 tab Referrals: DONNA DE LA CRUZ MD [Staff Physician] - 3-5 Days Forms: STI Treatment and Prevention, Work/School Release Form(ED)
[2019-01-24] MEDS ORDERED: LIDOCAINE-MPF (1%) 10 MG/1 ML VIAL 5 ML INFILTRATI ONE (14:29)
[2019-01-24] MEDS ORDERED: AZITHROMYCIN 250 MG TAB PO ONE (14:29)
[2019-01-24] MEDS ORDERED: metroNIDAZOLE 500 MG TAB PO ONE (14:31)
[2019-01-24 15:33] VITALS: BP 100/51
== END 2019-01-24 15:43 | disposition home or self-care (01) ==
LOC: ED 10:55
DX: N73.0 Acute parametritis and pelvic cellulitis (principal); A59.09 Other urogenital trichomoniasis; N76.0 Acute vaginitis; B37.3 Candidiasis of vulva and vagina; F17.200 Nicotine dependence, unspecified, uncomplicated
CPT/HCPCS: 81001; 81025; 87086; 87210; 87591; 96372; 99284; J0696

== ENCOUNTER 2019-03-10 18:27 | Emergency (ER) | payer MEDICAID ==
[2019-03-10 20:48] VITALS: BP 113/70
== END 2019-03-10 22:35 | disposition left against medical advice (07) ==
LOC: ED 18:27
DX: R51 Headache (principal); Z53.21 Procedure and treatment not carried out due to patient leaving prior to being seen by health care provider

== ENCOUNTER 2021-01-03 18:09 | Emergency (ER) | payer MEDICAID ==
[2021-01-03 18:33] VITALS: BP 98/67
[2021-01-03] MEDS ORDERED: BUTALB/ACETAMINOPHEN/CAFFEINE TAB PO ONE (18:40)
--- NOTE | 2021-01-03 20:01 | Cat Scan Report ---
CT head/brain wo con INDICATION / CLINICAL INFORMATION: 25 years Female; hit head, loc, zayas, neck pain. TECHNIQUE: Routine CT head without contrast. All CT scans at this location are performed using CT dos e reduction for ALARA by means of automated exposure control. COMPARISON: None. FINDINGS: BRAIN / INTRACRANIAL CONTENTS: The brain parenchyma demonstrate appropriate attenuation. The ventricu lar system is within normal limits in size and configuration. There is no clear CT evidence of acute intracranial hemorrhage or significant mass effect. ORBITS: No significant abnormality of visualized orbits. SINUSES / MASTOIDS: No significant abnormality in the visualized paranasal sinuses or mastoid air joanne ls. CRANIOCERVICAL JUNCTION: No significant abnormality. ADDITIONAL FINDINGS: None. IMPRESSION: 1. There is no CT evidence of acute intracranial process. Signer Name: Familia Cervantes MD Signed: 01/03/2021 7:57 PM Workstation Name: [id number]
--- NOTE | 2021-01-03 20:07 | Cat Scan Report ---
CT cervical spine wo con INDICATION / CLINICAL INFORMATION: 25 years Female; hit head, loc, zayas, neck pain. TECHNIQUE: Axial CT images of the cervical spine were obtained. Sagittal and coronal reformatted images were pr oduced. All CT scans at this location are performed using CT dose reduction for ALARA by means of aut omated exposure control. COMPARISON: None available. FINDINGS: POST-SURGICAL CHANGES: None. ALIGNMENT: There is no significant spondylolisthesis involving the cervical spine at. VERTEBRAE: There is no CT evidence of acute fracture of the cervical spine. INTRAVERTEBRAL DISCS: The intervertebral disc spaces appear fairly well-maintained without evidence o f significant bony of spinal stenosis. PARASPINAL SOFT TISSUES: No prevertebral soft tissue fluid collections are identified. ADDITIONAL FINDINGS: None. IMPRESSION: 1. There is no CT evidence of acute fracture involving the cervical spine. Signer Name: Familia Cervantes MD Signed: 01/03/2021 8:02 PM Workstation Name: [id number]
--- NOTE | 2021-01-03 20:27 | Emergency Department Report ---
ED General Adult HPI - General Chief complaint: Head Injury Stated complaint: HEAD INJURY Time Seen by Provider: 01/03/21 18:36 Source: patient Mode of arrival: Ambulatory Limitations: No Limitations - History of Present Illness Initial comments: Patient is a 25-year-old female presents emergency room with complaints of a head injury that occurred last night. Patient states that she was in the bathroom at a store and she slipped and fell and hit her head against the toilet. She reports that she did have a brief episode of loss of consciousness. States since then she is having headache and neck pain. She denies any vision changes, vomiting, numbness, weakness, bowel or bladder incontinence. She is ambulatory without difficulty. No past medical history. Allergy to amoxicillin. Last menstrual cycle 2 weeks ago, she states that she is on control denies any possibility of . Severity scale (0 -10): 10 - Related Data Previous Rx's Medication Instructions Recorded Last Taken Type traMADoL [Ultram 50 MG tab] 50 mg PO Q6HR PRN #12 tablet 10/01/17 10/14/17 Rx DOXYCYCLINE Hyclate [Vibramycin 100 mg PO Q12HR #14 capsule 10/16/17 Unknown Rx CAP] Ibuprofen [Motrin] 800 mg PO Q8HR PRN #30 tablet 10/16/17 Unknown Rx Methylergonovine [Methergine] 0.2 mg PO Q8HR #6 tablet 10/16/17 Unknown Rx Ibuprofen [Motrin] 600 mg PO Q8H PRN #30 tablet 01/13/18 Unknown Rx Naproxen [Naprosyn] 500 mg PO BID #20 tablet 11/20/18 Unknown Rx metroNIDAZOLE [Flagyl] 500 mg PO Q12HR 7 Days #14 tab 11/20/18 Unknown Rx Clindamycin [Clindamycin CAP] 300 mg PO Q8H #21 cap 12/19/18 Unknown Rx Fluconazole (Nf) [Diflucan TAB] 150 mg PO ONCE #1 tablet 12/19/18 Unknown Rx Doxycycline Monohydrate 100 mg PO BID 14 Days #28 tablet 01/24/19 Unknown Rx Fluconazole (Nf) [Diflucan TAB] 150 mg PO ONCE 1 Days #2 tablet 01/24/19 Unknown Rx metroNIDAZOLE [Flagyl TAB] 500 mg PO Q12HR 6 Days #12 tab 01/24/19 Unknown Rx Butalb/Acetaminophen/Caffeine 1 cap PO Q8HR PRN #12 cap 01/03/21 Unknown Rx [Fioricet 50-300-40 mg CAP] methOCARBAMOL [Robaxin TAB] 500 mg PO BID PRN #14 tab 01/03/21 Unknown Rx Allergies Allergy/AdvReac Type Severity Reaction Status Date / Time amoxicillin Allergy Hives Verified 01/03/21 18:35 ED Review of Systems ROS: Stated complaint: HEAD INJURY Other details as noted in HPI Comment: All other systems reviewed and negative ED Past Medical Hx - Past Medical History Additional medical history: D & C October 2017 - Surgical History Additional Surgical History: D & C October 2017 - Social History Smoking Status: Current Every Day Smoker - Medications Home Medications: Home Medications Medication Instructions Recorded Confirmed Last Taken Type traMADoL [Ultram 50 MG tab] 50 mg PO Q6HR PRN #12 tablet 10/01/17 10/16/17 0 10/14/17 Rx DOXYCYCLINE Hyclate [Vibramycin 100 mg PO Q12HR #14 capsule 10/16/17 Unknown Rx CAP] Ibuprofen [Motrin] 800 mg PO Q8HR PRN #30 tablet 10/16/17 Unknown Rx Methylergonovine [Methergine] 0.2 mg PO Q8HR #6 tablet 10/16/17 Unknown Rx Ibuprofen [Motrin] 600 mg PO Q8H PRN #30 tablet 01/13/18 Unknown Rx Naproxen [Naprosyn] 500 mg PO BID #20 tablet 11/20/18 Unknown Rx metroNIDAZOLE [Flagyl] 500 mg PO Q12HR 7 Days #14 tab 11/20/18 Unknown Rx Clindamycin [Clindamycin CAP] 300 mg PO Q8H #21 cap 12/19/18 Unknown Rx Fluconazole (Nf) [Diflucan TAB] 150 mg PO ONCE #1 tablet 12/19/18 Unknown Rx Doxycycline Monohydrate 100 mg PO BID 14 Days #28 tablet 01/24/19 Unknown Rx Fluconazole (Nf) [Diflucan TAB] 150 mg PO ONCE 1 Days #2 tablet 01/24/19 Unknown Rx metroNIDAZOLE [Flagyl TAB] 500 mg PO Q12HR 6 Days #12 tab 01/24/19 Unknown Rx Butalb/Acetaminophen/Caffeine 1 cap PO Q8HR PRN #12 cap 01/03/21 Unknown Rx [Fioricet 50-300-40 mg CAP] methOCARBAMOL [Robaxin TAB] 500 mg PO BID PRN #14 tab 01/03/21 Unknown Rx ED Physical Exam - General Limitations: No Limitations General appearance: alert, in no apparent distress - Head Head exam: Present: atraumatic, normocephalic - Eye Eye exam: Present: normal appearance, PERRL, EOMI. Absent: periorbital swelling, periorbital tenderness - ENT ENT exam: Present: mucous membranes moist - Neck Neck exam: Present: normal inspection, tenderness (midline and paraspinal c- spine ttp, no step offs, no deformities, no edema, no ecchymosis), full ROM. Absent: meningismus - Respiratory Respiratory exam: Present: normal lung sounds bilaterally. Absent: respiratory distress, wheezes, rales, rhonchi, stridor, chest wall tenderness, accessory muscle use, decreased breath sounds, prolonged expiratory - Cardiovascular Cardiovascular Exam: Present: regular rate, normal rhythm, normal heart sounds. Absent: systolic murmur, diastolic murmur, rubs, gallop - Back Exam Back exam: Present: normal inspection, full ROM. Absent: paraspinal tenderness, vertebral tenderness - Neurological Exam Neurological exam: Present: alert, oriented X3, CN II-XII intact, normal gait. Absent: motor sensory deficit - Psychiatric Psychiatric exam: Present: normal affect, normal mood - Skin Skin exam: Present: warm, dry, intact ED Course Vital Signs 01/03/21 01/03/21 18:32 18:54 Temperature 98.9 F Pulse Rate 92 H Respiratory 18 16 Rate Blood Pressure 98/67 [Right] O2 Sat by Pulse 97 Oximetry ED Medical Decision Making - Radiology Data Radiology results: report reviewed Ordering Physician: XENIA PARKER Date of Service: 01/03/21 Procedure(s): CT cervical spine wo con Accession Number(s): [id number] cc: XENIA PARKER CT cervical spine wo con INDICATION / CLINICAL INFORMATION: 25 years Female; hit head, loc, zayas, neck pain. TECHNIQUE: Axial CT images of the cervical spine were obtained. Sagittal and coronal reformatted images were produced. All CT scans at this location are performed using CT dose reduction for ALARA by means of automated exposure control. COMPARISON: None available. FINDINGS: POST-SURGICAL CHANGES: None. ALIGNMENT: There is no significant spondylolisthesis involving the cervical spine at. VERTEBRAE: There is no CT evidence of acute fracture of the cervical spine. INTRAVERTEBRAL DISCS: The intervertebral disc spaces appear fairly well- maintained without evidence of significant bony of spinal stenosis. PARASPINAL SOFT TISSUES: No prevertebral soft tissue fluid collections are id entified. ADDITIONAL FINDINGS: None. IMPRESSION: 1. There is no CT evidence of acute fracture involving the cervical spine. Signer Name: Familia Cervantes MD Signed: 01/03/2021 8:02 PM Workstation Name: [id number] Transcribed By: MR Dictated By: Familia Cervantes MD Electronically Authenticated By: Familia Cervantes MD Signed Date/Time: 01/03/212001 DD/ 56 TD/TT: Print Ordering Physician: XENIA PARKER Date of Service: 01/03/21 Procedure(s): CT head/brain wo con Accession Number(s): [id number] cc: XENIA PARKER CT head/brain wo con INDICATION / CLINICAL INFORMATION: 25 years Female; hit head, loc, zayas, neck pain. TECHNIQUE: Routine CT head without contrast. All CT scans at this location are performed using CT dose reduction for ALARA by means of automated exposure control. COMPARISON: None. FINDINGS: BRAIN / INTRACRANIAL CONTENTS: The brain parenchyma demonstrate appropriate attenuation. The ventricular system is within normal limits in size and configuration. There is no clear CT evidence of acute intracranial hemorrhage or significant mass effect. ORBITS: No significant abnormality of visualized orbits. SINUSES / MASTOIDS: No significant abnormality in the visualized paranasal sinuses or mastoid air cells. CRANIOCERVICAL JUNCTION: No significant abnormality. ADDITIONAL FINDINGS: None. IMPRESSION: 1. There is no CT evidence of acute intracranial process. Signer Name: Familia Cervantes MD Signed: 01/03/2021 7:57 PM Workstation Name: [id number] Transcribed By: MR Dictated By: Familia Cervantes MD Electronically Authenticated By: Familia Cervantes MD Signed Date/Time: 01/03/211956 DD/ 53 TD/TT: - Medical Decision Making Patient is a 25-year-old female presents emergency room with complaints of a head injury that occurred last night. Patient states that she was in the bathroom at a store and she slipped and fell and hit her head against the toilet. She reports that she did have a brief episode of loss of consciousness. States since then she is having headache and neck pain. She denies any vision changes, vomiting, numbness, weakness, bowel or bladder incontinence. She is ambulatory without difficulty. No past medical history. Allergy to amoxicillin. Last menstrual cycle 2 weeks ago, she states that she is on control denies any possibility of . VSS. on exam: midline and paraspinal c-spine ttp, no step offs, no deformities, no edema, no ecchymosis, atraumatic, normocephalic, patient is ambulatory without difficulty, no focal neuro deficit. CT cervical spine 1. There is no CT evidence of acute fracture involving the cervical spine. CT head without contrast: 1. There is no CT evidence of acute intracranial process. Discussed all findings with patient answer questions. Symptoms likely related to concussion. Patient given prescription for medication. Advised patient please take medication as prescribed. follow up with a primary care doctor. follow up with a neurologist. return to the emergency room for any new or worsening symptoms. Critical care attestation.: If time is entered above; I have spent that time in minutes in the direct care of this critically ill patient, excluding procedure time. ED Disposition Clinical Impression: Neck pain Head injury Qualifiers: Encounter type: initial encounter Qualified Code(s): S09.90XA - Unspecified injury of head, initial encounter Disposition: HOME / SELF CARE / HOMELESS Is pt being admited?: No Does the pt Need Aspirin: No Condition: Stable Instructions: Head Injury, Adult, Muscle Strain, [id number] Additional Instructions: please take medication as prescribed. follow up with a primary care doctor. follow up with a neurologist. return to the emergency room for any new or worsening symptoms. Prescriptions: Butalb/Acetaminophen/Caffeine [Fioricet 50-300-40 mg CAP] 1 cap PO Q8HR PRN #12 cap PRN Reason: headache methOCARBAMOL [Robaxin TAB] 500 mg PO BID PRN #14 tab PRN Reason: muscle spasm/pain Referrals: KATHY SORIANO, [Primary Care Provider] - 2-3 Days JOSÉ MIGUEL MALIN MD [Staff Physician] - 2-3 Days MATT LUCIANO MD [Referring] - 2-3 Days Forms: Work/School Release Form(ED) Time of Disposition: 20:29 Print Language: CROATIAN
== END 2021-01-03 21:14 | disposition home or self-care (01) ==
LOC: ED 18:09
DX: S06.9X9A Unspecified intracranial injury with loss of consciousness of unspecified duration, initial encounter (principal); M54.2 Cervicalgia; Z98.890 Other specified postprocedural states; F17.200 Nicotine dependence, unspecified, uncomplicated; Z88.1 Allergy status to other antibiotic agents; W18.11XA Fall from or off toilet without subsequent striking against object, initial encounter; Y93.89 Activity, other specified; Y92.512 Supermarket, store or market as the place of occurrence of the external cause; Y99.8 Other external cause status
CPT/HCPCS: 70450; 72125; 99283